=== PATIENT | female | born 1935 | race Caucasian/White ===

== ENCOUNTER 2016-09-13 01:25 | Emergency (ER) | payer MEDICARE, OTHER ==
[2016-09-13 01:38] VITALS: TEMP 97.9; BMI 24.5
[2016-09-13] MEDS ORDERED: NS 1,000 ML IV ONE (01:41)
[2016-09-13] MEDS ORDERED: ONDANSETRON HCL 4 MG/2 ML VIAL IV ONE (01:41)
--- NOTE | 2016-09-13 01:59 | EDPRACDOC ---
- General Information Chief Complaint: Nausea,Vomiting,Diarrhea Stated Complaint: N/V Time Seen by Provider: 09/13/16 01:41 Information Source: Patient, Family Mode Of Arrival: Car Home Medications: Home Medications Amlodipine [Norvasc] 5 mg PO QAM 06/21/13 CloNIDine (Antihypertensive) [Catapres] 0.2 mg PO HS 06/21/13 Metoprolol Succinate 200 mg PO QAM 06/21/13 Paroxetine HCl 40 mg PO HS 06/21/13 Tiotropium [Spiriva Handihaler] 18 mcg INH DAILY PRN 06/21/13 Furosemide [Lasix] 20 mg PO Q48H 04/25/15 Cyanocobalamin/FA/Pyridoxine [Folplex 2.2 Tablet (2.2 mg/1 mg/25 mg)] 1 each PO HS 03/01/16 Levothyroxine [Synthroid, Levoxyl] 88 mcg PO QAM 03/01/16 Rosuvastatin Calcium [Crestor] 5 mg PO MOWEFR 03/01/16 Allopurinol 300 mg PO QAM 05/28/16 Dipyridamole/Aspirin 200/25 [Aggrenox (200mg/25mg)] 1 cap PO .BIDWM ON HOLD Aspirin (Enteric Coated) [Halfprin] 81 mg PO DAILYWM #30 tablet 06/03/16 ClonazePAM [Klonopin] 0.5 mg PO BID #60 tablet 06/03/16 Hydrocodone Bit/Acetaminophen [Jackson 5-325 Tablet] 1 each PO Q6 PRN #30 tablet 06/03/16 Azithromycin [Zithromax] 250 mg PO DAILY #4 tab 09/13/16 Probiotic Blend [Meagan Q] 1 each PO DAILY #30 tab 09/13/16 Promethazine HCl [Phenergan] 25 mg AK Q8H PRN #12 supp 09/13/16 Promethazine [Phenergan] 25 mg PO Q6H PRN #10 tab 09/13/16 Allergies/Adverse Reactions: Allergies Allergy/AdvReac Type Severity Reaction Status Date / Time No Known Allergies Allergy Verified 09/13/16 01:38 - History of Present Illness Onset: yesterday HPI: PT HAS HAD N/V FOR 2 DAYS. PT WAS STARTED ON CIPRO ON 09/08 FOR A UTI, BUT CX WAS NEG. PT'S CLONIDINE WAS ALSO STOPPED ON 09/08 DUE TO SEVERE ORTHOSTATIC HYPOTENSION. PT'S FAMILY MEMBER SAID SHE GAVE PT 2 OF HER ZOFRANS AND IT HAS NOT HELPED. PT DENIES ANY PAIN. Symptoms Occured: Reports: Spontaneous Duration: Reports: Intermittent Recent: Reports: None Pain Severity: None ED Past Medical History - Patient Medical History Neurological History: Reports: Cerebrovascular Accident (April 2015 affecting the left cerebral hemisphere noted on MRI) Cardiac History: Reports: Hypertension, Hypercholesterolemia, Valvular Heart Disease Respiratory History: Reports: COPD, Emphysema GI/ History: Reports: Renal Disease (ELEVATED CREATININE), Gastroesophageal Reflux Musculoskeletal History: Reports: Arthritis, Gout Psychological History: Reports: Anxiety. Denies: Depression, Substance Use Disorder Systemic History: Reports: Cancer (breast), Hypothyroidism Surgical History: Reports: Cholecystectomy, Hysterectomy, Tonsillectomy/ Adnoidectomy, Other (Rectocele and cystocele repair in 2012, mastectomy) - Family Medical History Reports: Hypertension (POSSIBLY FATHER), Cancer (BROTHER), Stroke (MOTHER TIA'S) , Cardiac Disorders - Social Medical History Smoking Status: Former smoker Social History: Denies: Substance Use Disorder ETOH: None Substance Abuse: None Lives With: Family Lives In: Home EDM Review of Systems - Review of Systems ROS Negative Except as Marked: Yes All systems reviewed and were negative except as marked Gastrointestinal: Nausea, Vomiting - Physical Exam Constitutional: Alert (Awake), No apparent distress Oriented to: Time, Person, Place Last recorded Vital Signs: Last Vital Signs Temp 97.9 F 09/13/16 01:35 Pulse 88 09/13/16 01:35 Resp 16 09/13/16 01:35 BP 179/85 09/13/16 01:35 Pulse Ox 93 09/13/16 01:35 Oxygen Pulse Oxygen Saturation 93 O2 Device Room Air Oxygen Flow Rate Fraction of Inspired Oxygen ( FIO2) - HEENT Head: Normal ( normocephalic) Eye Exam: Normal (PERRL, EOMI, Sclera white) Oropharynx: Membranes Dry ENT EAC: Normal TMJ: Normal Nose: No Symptoms Reported (septum midline) Neck: Normal (FROM, trachea at midline) - Respiratory/Cardiovascular Respiratory: Normal - CTA (BBS clear to auscultation without adventitious sounds ) Cardiovascular: Normal (RRR without murmur, gallop or rub) - GI Auscultation: Normal (NABS) Palpation: Normal (Soft,No rebound or guarding, non distended) Tenderness: Non tender Mendoza's Sign: Negative - Musculoskeletal Back: Normal Extremities: Pedal Edema - Integumentary Skin: Normal, Warm, Dry Lymphatics: Normal (no adenopathy) - Neurologic Memory Impaired: Normal Motor Function: Normal (Normal tone, Pulses 2+ No cyanosis or edema, FROM) Cranial Nerve: Normal (CN II-X11 intact sensation, strength 5/5) Cerebellar: Normal Mood Description: Normal Thought: Coherent Perception: Normal - Re-evaluation Re-evaluation 1 Re-evaluation Time: 04:46 (TOLERATING POS) - Results 09/13/16 01:45 09/13/16 01:45 - EKG EKG #1 EKG Time: 02:15 -: Yes EKG interpreted by me Rate: bpm: [address] [place]: Normal Rhythm: NSR Block: None Hypertrophy: None ST: Normal Comparison: 05/29/16 - Diagnostic Imaging Chest Image interpreted by: Radiologist Vascular congestion and mild cardiomegaly, with mildly increased interstitial markings, raising question for minimal interstitial edema. Peribronchial thickening seen. Abdomen Image interpreted by: Radiologist 5 x 6.1 cm diameter abdominal aortic aneurysm. No retroperitoneal hematoma. Focal infiltration in the right lung base suggesting pneumonia. Bilateral renal parenchymal atrophy. No evidence of bowel obstruction or inflammation. Diverticulosis of the sigmoid colon without evidence of diverticulitis. Decision Time to Discharge: 04:46 - Departure Yes I personally saw and evaluated the patient. Disposition: Home Condition: Fair Final Diagnosis: Nausea and vomiting, Dehydration, RLL pneumonia Instructions: Acute Nausea and Vomiting (ED), Bacterial Pneumonia (ED) Education/Counseling Given To: Patient Education/Counseling Given Regarding: Diagnosis, Treatment, Follow Up Referrals: Federica Oliver, [employer] [Primary Care Provider] - One Week Prescriptions: New Promethazine [Phenergan] 25 mg PO Q6H PRN #10 tab PRN Reason: Nausea/Vomiting Promethazine HCl [Phenergan] 25 mg AK Q8H PRN #12 supp PRN Reason: Nausea/Vomiting Azithromycin [Zithromax] 250 mg PO DAILY #4 tab Probiotic Blend [Meagan Q] 1 each PO DAILY #30 tab No Action Tiotropium [Spiriva Handihaler] 18 mcg INH DAILY PRN PRN Reason: Shortness Of Breath Paroxetine HCl 40 mg PO HS Amlodipine [Norvasc] 5 mg PO QAM Metoprolol Succinate 200 mg PO QAM CloNIDine (Antihypertensive) [Catapres] 0.2 mg PO HS Furosemide [Lasix] 20 mg PO Q48H Cyanocobalamin/FA/Pyridoxine [Folplex 2.2 Tablet (2.2 mg/1 mg/25 mg)] 1 each PO HS Levothyroxine [Synthroid, Levoxyl] 88 mcg PO QAM Rosuvastatin Calcium [Crestor] 5 mg PO MOWEFR Allopurinol 300 mg PO QAM Dipyridamole/Aspirin 200/25 [Aggrenox (200mg/25mg)] 1 cap PO .BIDWM ON HOLD Aspirin (Enteric Coated) [Halfprin] 81 mg PO DAILYWM #30 tablet ClonazePAM [Klonopin] 0.5 mg PO BID #60 tablet Hydrocodone Bit/Acetaminophen [Jackson 5-325 Tablet] 1 each PO Q6 PRN #30 tablet PRN Reason: Pain Additional Instructions: STOP CIPRO
[2016-09-13 02:05] LABS: AUTOMATED BASOPHIL 1.1 % (0-2); AUTOMATED EOSINOPHIL 0.4 % (0-5); AUTOMATED LYMPH 11.8 % (17-44); AUTOMATED MONOCYTE 4.3 % (3-10); AUTOMATED NEUTROPHIL 82.4 % (45-76); MPV 7.5 fL (7.4-10.4)
[2016-09-13 02:15] LABS: BLOOD UREA NITROGEN 35 MG/DL (7-17); CALCIUM 10.4 MG/DL (8.4-10.2); CALCULATED OSMOLALITY 288 MOs/Kg (270-290); CHLORIDE 104 mEq/L (98-107); GLUCOSE 160 MG/DL (70-99); SODIUM LEVEL 144 mEq/L (137-146); TOTAL PROTEIN 7.5 G/DL (6.3-8.2)
[2016-09-13 02:38] LABS: PARTIAL THROMB. TIME 24.3 SEC (22-35); PT-INR 1.1
--- NOTE | 2016-09-13 02:48 | DIRPT ---
CLINICAL DATA: Acute onset of nausea and vomiting. Initial encounter. EXAM: PORTABLE CHEST 1 VIEW COMPARISON: Chest radiograph performed 05/31/2016 FINDINGS: The lungs are well-aerated. Vascular congestion is noted, with mildly increased interstitial markings, raising question for minimal interstitial edema. Peribronchial thickening is seen. There is no evidence of pleural effusion or pneumothorax. The cardiomediastinal silhouette is mildly enlarged. No acute osseous abnormalities are seen. IMPRESSION: Vascular congestion and mild cardiomegaly, with mildly increased interstitial markings, raising question for minimal interstitial edema. Peribronchial thickening seen. Electronically Signed By: Royer Adames M.D. On: 09/13/2016 02:46
[2016-09-13 03:05] LABS: LEUKOCYTES/URINE NEG (NEGATIVE); NITRITE/URINE NEG (NEGATIVE); URINE OCCULT BLOOD 1+ (NEG/TRACE); WBC/URINE 0-2 (0-5)
--- NOTE | 2016-09-13 03:47 | DIRPT ---
CLINICAL DATA: Nausea and vomiting for 2 days. White cell count 14. Hematuria. EXAM: CT ABDOMEN AND PELVIS WITHOUT CONTRAST TECHNIQUE: Multidetector CT imaging of the abdomen and pelvis was performed following the standard protocol without IV contrast. COMPARISON: Ultrasound abdomen 07/06/2016 FINDINGS: Focal infiltration in the right lung base suggesting pneumonia. Mild atelectasis in the left lung base. Coronary artery calcifications. Evaluation of solid organs and vascular structures is limited without IV contrast material. Evaluation of bowel structures is limited without oral contrast material. The unenhanced appearance of the liver, spleen, pancreas, inferior vena cava, and retroperitoneal lymph nodes is unremarkable. Gallbladder is not visualized and may be contracted or surgically absent. Both kidneys demonstrate renal parenchymal atrophy with sub cm lesions likely representing cysts. No hydronephrosis or hydroureter. No renal stones. There is a large infrarenal abdominal aortic aneurysm measuring 5 cm AP dimension and 6.1 cm transverse dimension. Aneurysm extends to just above the bifurcation. Calcification throughout the abdominal aorta and iliac arteries. No retroperitoneal fluid to suggest rupture. Stomach, small bowel, and colon are not abnormally distended. Stool fills the colon. There are scattered colonic diverticula. No free air or free fluid in the abdomen. Abdominal wall musculature appears intact. Pelvis: Appendix is not identified. Bladder wall is not thickened. Diverticulosis of sigmoid colon without evidence of diverticulitis. No free or loculated pelvic fluid collections. No pelvic mass or lymphadenopathy. Surgical absence of the uterus. Degenerative changes in the spine. No destructive bone lesions. IMPRESSION: 5 x 6.1 cm diameter abdominal aortic aneurysm. No retroperitoneal hematoma. Focal infiltration in the right lung base suggesting pneumonia. Bilateral renal parenchymal atrophy. No evidence of bowel obstruction or inflammation. Diverticulosis of the sigmoid colon without evidence of diverticulitis. Electronically Signed By: Doyle Law M.D. On: 09/13/2016 03:45
[2016-09-13] MEDS ORDERED: CEFTRIAXONE 1 GM in D5W 100 ML IV ONE (03:56)
[2016-09-13] MEDS ORDERED: AZITHROMYCIN 250 MG TAB PO ONE (03:56)
[2016-09-13 05:42] VITALS: BP 138/68; PULSE 85
== END 2016-09-13 05:30 | disposition home or self-care (01) ==
LOC: ED 01:25
DX: E86.0 Dehydration (principal); J18.9 Pneumonia, unspecified organism; R11.2 Nausea with vomiting, unspecified; R31.9 Hematuria, unspecified
CPT/HCPCS: 36415; 71010; 74176; 80053; 81001; 83605; 83690; 84484; 85025; 85610; 85730; 87040; 87086; 93005; 96361; 96365; 96375; 99283; A9270; J0696; J2405; J7060; J3490

== ENCOUNTER 2016-09-16 10:29 | Inpatient (IN) | payer MEDICARE ==
[2016-09-16] MEDS ORDERED: NS 1,000 ML IV ONE ×2 (10:44→11:43)
--- NOTE | 2016-09-16 10:44 | EDPRACDOC ---
- History of Present Illness HPI: MD NOTE SEE ED RECORD FROM 09/13; PT RESIDES AT HOME. REPORTEDLY FULL CODE; DX WITH VOMITING AND RLL PNEUMONIA; PT HAS NOT BEEN EATING OR DRINKING; MORE CONFUSION COMPARED TO BASELINE. LAB TRENDS REVIEWED; WBC INCREASED; BUN/CR INCREASED; <Nathen Burt - Last Filed: 09/16/16 12:02> - General Information Information Source: [employer] - History of Present Illness Onset: 4 days Exact Onset of Symptoms: Unknown HPI: EMS REPORTS FAMILY STATES INCREASING GENERALIZED WEAKNESS, LETHARGY, NOT EATING , SEEN ON 09/13/16 FOR N/V, DIAGNOSED WITH PNEUMONIA, GIVEN ZITHROMAX AND PHENERGAN, PT WORSE. PT DENIES COMPLAINTS OF PAIN OR SOBR, STATES SHE JUST DOES NOT FEEL GOOD. Symptoms began: Gradually Duration: Since Onset Symptoms Currently: Reports: Worsened Altered Quality: Reports: Decreased Alertness, Confusion Altered Severity: Reports: Moderate, Unable to care for self Recent Symptoms of: Reports: Fever, Vomiting. Denies: Cough, Medications/drug use, Nausea, Rash, Trauma, Urinary symptoms Relevant History: Reports: CVA Associated signs and symptoms: Reports: Weakness. Denies: Chest pain, Headache , Seizure, Slurred speech <Dayton Cuellar - Last Filed: 09/16/16 12:32> - General Information Chief Complaint: Altered Mental Status Stated Complaint: CONFUSION Time Seen by Provider: 09/16/16 10:38 Home Medications: Home Medications Amlodipine [Norvasc] 5 mg PO QAM 06/21/13 CloNIDine (Antihypertensive) [Catapres] 0.2 mg PO HS 06/21/13 Metoprolol Succinate 200 mg PO QAM 06/21/13 Paroxetine HCl 40 mg PO HS 06/21/13 Tiotropium [Spiriva Handihaler] 18 mcg INH DAILY PRN 06/21/13 Cyanocobalamin/FA/Pyridoxine [Folplex 2.2 Tablet (2.2 mg/1 mg/25 mg)] 1 tab PO HS 03/01/16 Levothyroxine [Synthroid, Levoxyl] 88 mcg PO QAM 03/01/16 Rosuvastatin Calcium [Crestor] 5 mg PO MOWEFR 03/01/16 Allopurinol 300 mg PO QAM 05/28/16 Dipyridamole/Aspirin 200/25 [Aggrenox (200mg/25mg)] 1 cap PO BID 05/29/16 ClonazePAM [Klonopin] 0.5 mg PO BID #60 tablet 06/03/16 Azithromycin [Zithromax] 250 mg PO DAILY #4 tab 09/13/16 Promethazine [Phenergan] 25 mg PO Q6H PRN #10 tab 09/13/16 Albuterol Sulfate [Proair Hfa] 2 puff INH Q4-6H PRN 09/16/16 Calcitriol [Rocaltrol] 0.25 mcg PO DAILY 09/16/16 Ciprofloxacin HCl [Cipro] 250 mg PO DAILY 09/16/16 Hydrocodone Bit/Acetaminophen [[place] 5-325 Tablet] 1 tab PO Q6 PRN 09/16/16 Metoprolol Succinate (XL) [Toprol Xl] 100 mg PO BID 09/16/16 Allergies/Adverse Reactions: Allergies Allergy/AdvReac Type Severity Reaction Status Date / Time No Known Allergies Allergy Verified 09/13/16 01:38 - Treatment Prior to ED Arrival Reported Medications/Treatment POWER PROJECT MANAGER Meds/Treatments Given O2 via Cannula EMS Treatment ALS IV Yes Comment 20g to LAC <Nathen Burt - Last Filed: 09/16/16 12:02> - Treatment Prior to ED Arrival Reported Medications/Treatment POWER PROJECT MANAGER Meds/Treatments Given O2 via Cannula EMS Treatment ALS IV Yes Comment 20g to LAC <Dayton Cuellar - Last Filed: 09/16/16 12:32> ED Past Medical History - History Reviewed Yes Nurses notes reviewed and agree except as marked - Patient Medical History Neurological History: Reports: Cerebrovascular Accident (April 2015 affecting the left cerebral hemisphere noted on MRI) Cardiac History: Reports: Hypertension, Hypercholesterolemia, Valvular Heart Disease Respiratory History: Reports: COPD, Emphysema GI/ History: Reports: Renal Disease (ELEVATED CREATININE), Gastroesophageal Reflux Musculoskeletal History: Reports: Arthritis, Gout Psychological History: Reports: Anxiety. Denies: Depression, Substance Use Disorder Systemic History: Reports: Cancer (breast), Hypothyroidism Surgical History: Reports: Cholecystectomy, Hysterectomy, Tonsillectomy/ Adnoidectomy, Other (Rectocele and cystocele repair in 2012, mastectomy) - Family Medical History Reports: Hypertension (POSSIBLY FATHER), Cancer (BROTHER), Stroke (MOTHER TIA'S) , Cardiac Disorders - Social Medical History Smoking Status: Former smoker Social History: Denies: Substance Use Disorder ETOH: None Substance Abuse: None <Dayton Cuellar - Last Filed: 09/16/16 12:32> EDM Review of Systems - Review of Systems Constitutional: Fatigue, Weakness. negative: Chills, Fever Eyes: negative: Blurred Vision, Double Vision Ears: negative: Drainage Throat: negative: Pain Nose: negative: Congestion, Discharge Respiratory: Cough. negative: Shortness of Breath, Wheezing Cardiovascular: negative: Chest Pain, Palpitations Gastrointestinal: Nausea, Vomiting. negative: Diarrhea, Pain Genitourinary: negative: Dysuria, Frequency Neurological: Weakness. negative: Dizziness, Headache, Numbness Musculoskeletal: No Symptoms Reported Integumentary: No Symptoms Reported <Dayton Cuellar - Last Filed: 09/16/16 12:32> - Physical Exam Last recorded Vital Signs: Last Vital Signs Temp 99.8 F 09/16/16 10:50 Pulse 87 09/16/16 11:39 Resp 20 09/16/16 11:39 BP 162/72 09/16/16 11:39 Pulse Ox 96 09/16/16 11:39 Oxygen Pulse Oxygen Saturation 96 O2 Device Nasal Cannula Oxygen Flow Rate 2 Fraction of Inspired Oxygen ( FIO2) <Nathen Burt - Last Filed: 09/16/16 12:02> - Physical Exam Constitutional: Alert (Awake), No apparent distress Oriented to: Time, Person, Place Last recorded Vital Signs: Last Vital Signs Temp 97.8 F 09/16/16 10:31 Pulse 90 09/16/16 10:31 Resp 20 09/16/16 10:31 BP 153/83 09/16/16 10:31 Pulse Ox 84 L 09/16/16 10:31 Oxygen Pulse Oxygen Saturation 84 O2 Device Nasal Cannula Oxygen Flow Rate 2 Fraction of Inspired Oxygen ( FIO2) - HEENT Head: Normal ( normocephalic) Eye Exam: Normal (PERRL, EOMI, Sclera white) Oropharynx: Normal (Pharynx:Moist without exudate,Gums-no swelling) Tympanic Membrane: Normal ENT EAC: Normal TMJ: Normal Nose: No Symptoms Reported (septum midline) Neck: Normal (FROM, trachea at midline) - Respiratory/Cardiovascular Respiratory: Normal - CTA (BBS clear to auscultation without adventitious sounds ) Cardiovascular: Normal (RRR without murmur, gallop or rub) - GI Auscultation: Normal (NABS) Palpation: Normal (Soft,No rebound or guarding, non distended) Tenderness: Non tender Mendoza's Sign: Negative - Musculoskeletal Back: Normal (Non-Tender) Extremities: Normal (Normal tone, Pulses 2+ No cyanosis or edema, FROM) - Integumentary Skin: Normal, Warm, Dry Lymphatics: Normal (no adenopathy) - Neurologic Memory Impaired: Normal Motor Function: Normal (Normal tone, Pulses 2+ No cyanosis or edema, FROM) Cranial Nerve: Normal (CN II-X11 intact sensation, strength 5/5) Cerebellar: Normal Mood Description: Normal Perception: Normal <Dayton Cuellar - Last Filed: 09/16/16 12:32> - Results 09/16/16 10:40 09/16/16 10:40 WBC 17.1 xk/uL (3.8-10.8) H 09/16/16 10:40 RBC 3.77 xM/uL (4.20-5.40) L 09/16/16 10:40 Hgb 12.0 g/dL (12.0-16.0) 09/16/16 10:40 Hct 37.9 % (36-47) 09/16/16 10:40 MCV 101 fL (81-99) H 09/16/16 10:40 MCH 32.0 pg (27-32) 09/16/16 10:40 MCHC 31.7 g/dl (33-36) L 09/16/16 10:40 RDW 16.7 % (11.5-14.5) H 09/16/16 10:40 Plt Count 248 xk/uL (130-400) 09/16/16 10:40 MPV 7.7 fL (7.4-10.4) 09/16/16 10:40 Neut % (Auto) 78.0 % (45-76) H 09/16/16 10:40 Lymph % (Auto) 11.9 % (17-44) L 09/16/16 10:40 [place] % (Auto) 8.6 % (3-10) 09/16/16 10:40 Eos % (Auto) 0.5 % (0-5) 09/16/16 10:40 Baso % (Auto) 1.0 % (0-2) 09/16/16 10:40 Absolute Neuts (auto) 13.34 xk/uL (1.7-8.2) H 09/16/16 10:40 Absolute Lymphs (auto) 1.88 xk/uL (0.65-4.75) 09/16/16 10:40 PT 11.3 SEC (9.2-11.2) H 09/16/16 10:40 INR 1.1 09/16/16 10:40 APTT 20.1 SEC (22-35) L 09/16/16 10:40 Puncture Site Right radial 09/16/16 10:57 pH 7.450 pH UNITS (7.35-7.45) 09/16/16 10:57 pCO2 37.0 mmHg (35-45) 09/16/16 10:57 pO2 68.0 mmHg (80-100) L 09/16/16 10:57 HCO3 25.7 MMOL/L (22-26) 09/16/16 10:57 Total CO2 26.8 MMOL/L (23-27) 09/16/16 10:57 Base Excess 1.8 (+/- 2) 09/16/16 10:57 FiO2 % 2 lpm nc 09/16/16 10:57 Specimen Drawn By Piksa 09/16/16 10:57 Sodium 142 mEq/L (137-146) 09/16/16 10:40 Potassium 4.2 mEq/L (3.5-5.1) 09/16/16 10:40 Chloride 106 mEq/L (98-107) 09/16/16 10:40 Carbon Dioxide 25 mMOL/L (22-33) 09/16/16 10:40 Anion Gap 15 mEq/L (8-16) 09/16/16 10:40 BUN 46 MG/DL (7-17) H 09/16/16 10:40 Creatinine 3.20 MG/DL (0.52-1.04) H 09/16/16 10:40 Estimated GFR (MDRD) 14 mL/min (>=60) L 09/16/16 10:40 Glucose 117 mg/dL (70-99) H 09/16/16 10:40 Calculated Osmolality 286 MOs/Kg (270-290) 09/16/16 10:40 Lactic Acid 2.5 mEq/L (0.7-2.1) H 09/16/16 11:00 Calcium 9.1 MG/DL (8.4-10.2) 09/16/16 10:40 Corrected Calcium 9.5 MG/DL (8.4-10.2) 09/16/16 10:40 Total Bilirubin 0.7 MG/DL (0.2-1.3) 09/16/16 10:40 AST 19 IU/L (14-36) 09/16/16 10:40 ALT 16 IU/L (9-52) 09/16/16 10:40 Alkaline Phosphatase 75 IU/L (55-165) 09/16/16 10:40 Troponin I 0.04 ng/mL (<.04) 09/16/16 10:40 Ott-G-Bkisrogvhuo Pept 7880 pg/mL (0-1800) H 09/16/16 10:40 Total Protein 6.7 G/DL (6.3-8.2) 09/16/16 10:40 Albumin 3.6 G/DL (3.5-5.0) 09/16/16 10:40 Lipase 79 U/L (23-300) 09/16/16 10:40 Urine Color Yellow 09/16/16 10:51 Urine Clarity Cldy 09/16/16 10:51 Urine pH 5.0 (5.0-8.0) 09/16/16 10:51 Ur Specific [place] 1.010 (1.003-1.035) 09/16/16 10:51 Urine Protein 3+ (NEG/TRACE) H 09/16/16 10:51 Urine Glucose (UA) Neg (NEGATIVE) 09/16/16 10:51 Urine Ketones Neg (NEGATIVE) 09/16/16 10:51 Urine Occult Blood 1+ (NEG/TRACE) H 09/16/16 10:51 Urine Nitrite Neg (NEGATIVE) 09/16/16 10:51 Urine Bilirubin Neg (NEGATIVE) 09/16/16 10:51 Urine Urobilinogen <2.0 MG/DL (0-1) 09/16/16 10:51 Ur Leukocyte Esterase Neg (NEGATIVE) 09/16/16 10:51 Urine RBC 2-5 (0-5) 09/16/16 10:51 Urine WBC 0-2 (0-5) 09/16/16 10:51 Ur Epithelial Cells 2+ 09/16/16 10:51 Urine Bacteria Few (NEG/FEW) 09/16/16 10:51 Urine Mucus Occ (NEG/OCC) 09/16/16 10:51 Lab Results 09/16/16 09/16/16 09/16/16 11:00 10:57 10:51 WBC RBC Hgb Hct MCV MCH MCHC RDW Plt Count MPV Neut % (Auto) Lymph % (Auto) [place] % (Auto) Eos % (Auto) Baso % (Auto) Absolute Neuts (auto) Absolute Lymphs (auto) PT INR APTT Puncture Site Right radial pH 7.450 pCO2 37.0 pO2 68.0 L HCO3 25.7 Total CO2 26.8 Base Excess 1.8 FiO2 % 2 lpm nc Specimen Drawn By Piksa Sodium Potassium Chloride Carbon Dioxide Anion Gap BUN Creatinine Estimated GFR (MDRD) Glucose Calculated Osmolality Lactic Acid 2.5 H Calcium Corrected Calcium Total Bilirubin AST ALT Alkaline Phosphatase Troponin I Wwe-N-Iacriwwjvts Pept Total Protein Albumin Lipase Urine Color Yellow Urine Clarity Cldy Urine pH 5.0 Ur Specific [place] 1.010 Urine Protein 3+ H Urine Glucose (UA) Neg Urine Ketones Neg Urine Occult Blood 1+ H Urine Nitrite Neg Urine Bilirubin Neg Urine Urobilinogen <2.0 Ur Leukocyte Esterase Neg Urine RBC 2-5 Urine WBC 0-2 Ur Epithelial Cells 2+ Urine Bacteria Few Urine Mucus Occ 09/16/16 09/16/16 09/16/16 10:40 10:40 10:40 WBC 17.1 H RBC 3.77 L Hgb 12.0 Hct 37.9 MCV 101 H MCH 32.0 MCHC 31.7 L RDW 16.7 H Plt Count 248 MPV 7.7 Neut % (Auto) 78.0 H Lymph % (Auto) 11.9 L [place] % (Auto) 8.6 Eos % (Auto) 0.5 Baso % (Auto) 1.0 Absolute Neuts (auto) 13.34 H Absolute Lymphs (auto) 1.88 PT 11.3 H INR 1.1 APTT 20.1 L Puncture Site pH pCO2 pO2 HCO3 Total CO2 Base Excess FiO2 % Specimen Drawn By Sodium 142 Potassium 4.2 Chloride 106 Carbon Dioxide 25 Anion Gap 15 BUN 46 H Creatinine 3.20 H Estimated GFR (MDRD) 14 L Glucose 117 H Calculated Osmolality 286 Lactic Acid Calcium 9.1 Corrected Calcium 9.5 Total Bilirubin 0.7 AST 19 ALT 16 Alkaline Phosphatase 75 Troponin I 0.04 Enn-F-Zwrrrvlhkjc Pept 7880 H Total Protein 6.7 Albumin 3.6 Lipase 79 Urine Color Urine Clarity Urine pH Ur Specific [place] Urine Protein Urine Glucose (UA) Urine Ketones Urine Occult Blood Urine Nitrite Urine Bilirubin Urine Urobilinogen Ur Leukocyte Esterase Urine RBC Urine WBC Ur Epithelial Cells Urine Bacteria Urine Mucus <Nathen Burt - Last Filed: 09/16/16 12:02> - Differential Diagnosis Dehydration, Hypoxemia, Sepsis, UTI - Results 09/16/16 10:40 09/16/16 10:40 09/16/16 11:43 Laboratory Results - last 24 hr 09/16/16 09/16/16 09/16/16 10:40 10:40 10:40 WBC 17.1 H RBC 3.77 L Hgb 12.0 Hct 37.9 MCV 101 H MCH 32.0 MCHC 31.7 L RDW 16.7 H Plt Count 248 MPV 7.7 Neut % (Auto) 78.0 H Lymph % (Auto) 11.9 L [place] % (Auto) 8.6 Eos % (Auto) 0.5 Baso % (Auto) 1.0 Absolute Neuts (auto) 13.34 H Absolute Lymphs (auto) 1.88 PT 11.3 H INR 1.1 APTT 20.1 L Puncture Site pH pCO2 pO2 HCO3 Total CO2 Base Excess FiO2 % Specimen Drawn By Sodium 142 Potassium 4.2 Chloride 106 Carbon Dioxide 25 Anion Gap 15 BUN 46 H Creatinine 3.20 H Estimated GFR (MDRD) 14 L Glucose 117 H Calculated Osmolality 286 Lactic Acid Calcium 9.1 Corrected Calcium 9.5 Total Bilirubin 0.7 AST 19 ALT 16 Alkaline Phosphatase 75 Troponin I 0.04 Gvc-X-Twuvbhhoinb Pept 7880 H Total Protein 6.7 Albumin 3.6 Lipase 79 Urine Color Urine Clarity Urine pH Ur Specific [place] Urine Protein Urine Glucose (UA) Urine Ketones Urine Occult Blood Urine Nitrite Urine Bilirubin Urine Urobilinogen Ur Leukocyte Esterase Urine RBC Urine WBC Ur Epithelial Cells Urine Bacteria Urine Mucus 09/16/16 09/16/16 09/16/16 10:51 10:57 11:00 WBC RBC Hgb Hct MCV MCH MCHC RDW Plt Count MPV Neut % (Auto) Lymph % (Auto) [place] % (Auto) Eos % (Auto) Baso % (Auto) Absolute Neuts (auto) Absolute Lymphs (auto) PT INR APTT Puncture Site Right radial pH 7.450 pCO2 37.0 pO2 68.0 L HCO3 25.7 Total CO2 26.8 Base Excess 1.8 FiO2 % 2 lpm nc Specimen Drawn By [place] Sodium Potassium Chloride Carbon Dioxide Anion Gap BUN Creatinine Estimated GFR (MDRD) Glucose Calculated Osmolality Lactic Acid 2.5 H Calcium Corrected Calcium Total Bilirubin AST ALT Alkaline Phosphatase Troponin I Aku-W-Wdvbpebinmm Pept Total Protein Albumin Lipase Urine Color Yellow Urine Clarity Cldy Urine pH 5.0 Ur Specific [place] 1.010 Urine Protein 3+ H Urine Glucose (UA) Neg Urine Ketones Neg Urine Occult Blood 1+ H Urine Nitrite Neg Urine Bilirubin Neg Urine Urobilinogen <2.0 Ur Leukocyte Esterase Neg Urine RBC 2-5 Urine WBC 0-2 Ur Epithelial Cells 2+ Urine Bacteria Few Urine Mucus Occ - EKG EKG #1 EKG Time: 10:41 -: Yes EKG interpreted by me Rate: bpm: 84 [place]: Normal Rhythm: NSR Block: None Hypertrophy: None ST: Nonsp Comparison: 09/13/16 (NO CHANGE) - Diagnostic Imaging CXR Image interpreted by: Radiologist PORTABLE CHEST 1 VIEW COMPARISON: 09/13/2016 and 05/31/2016. FINDINGS: 1104 hours. Interval improved aeration of the lungs. The heart size and mediastinal contours are stable. There is mild chronic vascular congestion without pulmonary edema, confluent airspace opacity or significant pleural effusion. The bones appear unchanged. IMPRESSION: No active cardiopulmonary process. - Additional Information Additional Information: PREVIOUS VISIT FROM 09/13/16 REVIEWED, PT HAD CT ABD/PELVIS AT THAT TIME WHICH SHOWED PNEUMONIA. LACTIC ACID WAS NL ON 09/13, BUN/CR ELEVATED TODAY. PT WAS DISCHARGE ON ZITHROMAX AND PHENERGAN. <Dayton Cuellar - Last Filed: 09/16/16 12:32> ED Critical Care Note - Critical Care Note Total Time (mins): 37 <Nathen Burt - Last Filed: 09/16/16 12:02> - Departure Yes I personally saw and evaluated the patient. Disposition: Admit IP To This Hospital Decision to Admit Time: 12:00 (IKRAM) Decision to admit date: 09/16/16 Decision to admit: from ED <Nathen Burt - Last Filed: 02/01/17 12:02> - Departure Education/Counseling Given To: Patient, Family Member Education/Counseling Given Regarding: Diagnosis, Treatment, Prognosis, Follow Up <Dayton Cuellar - Last Filed: 09/16/16 12:32> - Departure Condition: Fair Final Diagnosis: Community acquired pneumonia, Severe sepsis, Failure of outpatient treatment, PRE RENAL AZOTEMIA Referrals: Federica Oliver, GLOBAL PROGRAM MANAGER [Primary Care Provider] - One Week Prescriptions: No Action Tiotropium [Spiriva Handihaler] 18 mcg INH DAILY PRN PRN Reason: Shortness Of Breath Paroxetine HCl 40 mg PO HS Amlodipine [Norvasc] 5 mg PO QAM Metoprolol Succinate 200 mg PO QAM CloNIDine (Antihypertensive) [Catapres] 0.2 mg PO HS Cyanocobalamin/FA/Pyridoxine [Folplex 2.2 Tablet (2.2 mg/1 mg/25 mg)] 1 tab PO HS Levothyroxine [Synthroid, Levoxyl] 88 mcg PO QAM Rosuvastatin Calcium [Crestor] 5 mg PO MOWEFR Allopurinol 300 mg PO QAM Dipyridamole/Aspirin 200/25 [Aggrenox (200mg/25mg)] 1 cap PO BID ClonazePAM [Klonopin] 0.5 mg PO BID #60 tablet Promethazine [Phenergan] 25 mg PO Q6H PRN #10 tab PRN Reason: Nausea/Vomiting Azithromycin [Zithromax] 250 mg PO DAILY #4 tab Metoprolol Succinate (XL) [Toprol Xl] 100 mg PO BID Ciprofloxacin HCl [Cipro] 250 mg PO DAILY Albuterol Sulfate [Proair Hfa] 2 puff INH Q4-6H PRN PRN Reason: Shortness Of Breath Hydrocodone Bit/Acetaminophen [[place] 5-325 Tablet] 1 tab PO Q6 PRN PRN Reason: Pain Calcitriol [Rocaltrol] 0.25 mcg PO DAILY
[2016-09-16 11:00] LABS: ALLEN'S TEST PASS; BEb 1.8 (+/- 2); TCO2 26.8 MMOL/L (23-27)
[2016-09-16 11:01] LABS: ABG Draw Site Right Radial
[2016-09-16 11:02] LABS: AUTOMATED EOSINOPHIL 0.5 % (0-5); AUTOMATED LYMPH 11.9 % (17-44); AUTOMATED MONOCYTE 8.6 % (3-10); MPV 7.7 fL (7.4-10.4)
[2016-09-16 11:09] LABS: LEUKOCYTES/URINE NEG (NEGATIVE); NITRITE/URINE NEG (NEGATIVE); URINE OCCULT BLOOD 1+ (NEG/TRACE); WBC/URINE 0-2 (0-5)
[2016-09-16 11:18] LABS: PARTIAL THROMB. TIME 20.1 SEC (22-35); PT-INR 1.1
[2016-09-16 11:20] LABS: CALC CORRECTED 9.5 MG/DL (8.4-10.2); CALCIUM 9.1 MG/DL (8.4-10.2); CREATININE 3.2 MG/DL (0.52-1.04); TOTAL PROTEIN 6.7 G/DL (6.3-8.2)
--- NOTE | 2016-09-16 11:30 | DIRPT ---
CLINICAL DATA: Sepsis. Increasing generalized weakness and lethargy. EXAM: PORTABLE CHEST 1 VIEW COMPARISON: 09/13/2016 and 05/31/2016. FINDINGS: 1104 hours. Interval improved aeration of the lungs. The heart size and mediastinal contours are stable. There is mild chronic vascular congestion without pulmonary edema, confluent airspace opacity or significant pleural effusion. The bones appear unchanged. IMPRESSION: No active cardiopulmonary process. Electronically Signed By: Doyle Lora M.D. On: 09/16/2016 11:27
[2016-09-16] MEDS ORDERED: Levofloxacin 750 mg/150 ml D5W 750 MG/150 ML RTU IV ONE (11:47)
[2016-09-16] MEDS ORDERED: SODIUM CHLORIDE 0.9% 3 ML FLUSH FLUSH PRN (12:31)
[2016-09-16] MEDS ORDERED: ACETAMINOPHEN 325 MG/TAB TABLET PO PRN (12:31)
[2016-09-16] MEDS ORDERED: ACETAMINOPHEN 650 MG SUPP PR PRN (12:31)
[2016-09-16] MEDS ORDERED: PROMETHAZINE 25 MG/ML VIAL IV PRN (12:31)
[2016-09-16] MEDS ORDERED: DOCUSATE-SENNA CONCENTRATE TAB PO PRN (12:31)
[2016-09-16] MEDS ORDERED: GLUCAGON 1 MG VIAL SQ PRN (12:31)
[2016-09-16] MEDS ORDERED: Albuterol/Ipratropium Neb 3 ML NEB NEB PRN (12:31)
[2016-09-16] MEDS ORDERED: BENZONATATE 100 MG PERLES PO PRN (12:31)
[2016-09-16] MEDS ORDERED: TEMAZEPAM 15 MG CAP PO PRN (12:31)
[2016-09-16] MEDS ORDERED: GLUCOSE (ORAL GEL) 15 GM TUBE PO PRN (12:31)
[2016-09-16] MEDS ORDERED: DEXTROSE 25 GM/50 ML PFS IV PRN (12:31)
[2016-09-16] MEDS ORDERED: SIMETHICONE 80 MG TAB PO PRN (12:31)
--- NOTE | 2016-09-16 13:12 | HISTPHYS ---
- Chief Complaint SHORT OF BREATH - History of Present Illness Porsche Connolly is an 81 year old woman who lives at home with her family. She has had nausea and vomiting for 5 days and was recently seen in the ED for this complaint. She was diagnosed with pneumonia and treated as an outpatient, but has failed to improve. He family feels that she is getting worse. She is not eating, her mental status is more clouded (she is more confused and lethargic). She has not had as much vomiting the past two days as she did initially, but the patient states that she just doesn't feel good. She is not having any fevers or chills. Her white blood cell count is elevated, and she did have an infiltrate on her CTA of the chest three days ago. She is referred for admission at this time. - Medical History Cardiac History: Reports: Coronary Artery Disease, Hypertension, Hypercholesterolemia, Valvular Heart Disease Respiratory History: Reports: COPD, Emphysema GI/ History: Reports: Renal Disease ( CKD-4), Gastroesophageal Reflux, Diverticulosis Musculoskeletal History: Reports: Arthritis, Gout, Osteoarthritis Systemic History: Reports: Cancer (breast), Hypothyroidism Neurological History: Reports: Cerebrovascular Accident (April 2015 affecting the left cerebral hemisphere noted on MRI), Dementia (multi-infacrt) Psychological History: Reports: Anxiety. Denies: Depression, Substance Use Disorder - Surgical History Reports: Cholecystectomy, Hysterectomy, Tonsillectomy/Adnoidectomy, Other ( Rectocele and cystocele repair in 2012, mastectomy R, cataract removal) - Medictions/Allergies Allergies No Known Allergies Allergy (Verified 09/13/16 01:38) Current Medication List: Reviewed Home Medications Amlodipine [Norvasc] 5 mg PO QAM 06/21/13 CloNIDine (Antihypertensive) [Catapres] 0.2 mg PO HS 06/21/13 Metoprolol Succinate 200 mg PO QAM 06/21/13 Paroxetine HCl 40 mg PO HS 06/21/13 Tiotropium [Spiriva Handihaler] 18 mcg INH DAILY PRN 06/21/13 Cyanocobalamin/FA/Pyridoxine [Folplex 2.2 Tablet (2.2 mg/1 mg/25 mg)] 1 tab PO HS 03/01/16 Levothyroxine [Synthroid, Levoxyl] 88 mcg PO QAM 03/01/16 Rosuvastatin Calcium [Crestor] 5 mg PO MOWEFR 03/01/16 Allopurinol 300 mg PO QAM 05/28/16 Dipyridamole/Aspirin 200/25 [Aggrenox (200mg/25mg)] 1 cap PO BID 05/29/16 ClonazePAM [Klonopin] 0.5 mg PO BID #60 tablet 06/03/16 Azithromycin [Zithromax] 250 mg PO DAILY #4 tab 09/13/16 Promethazine [Phenergan] 25 mg PO Q6H PRN #10 tab 09/13/16 Albuterol Sulfate [Proair Hfa] 2 puff INH Q4-6H PRN 09/16/16 Calcitriol [Rocaltrol] 0.25 mcg PO DAILY 09/16/16 Ciprofloxacin HCl [Cipro] 250 mg PO DAILY 09/16/16 Hydrocodone Bit/Acetaminophen [[place] 5-325 Tablet] 1 tab PO Q6 PRN 09/16/16 Metoprolol Succinate (XL) [Toprol Xl] 100 mg PO BID 09/16/16 - Family History Reports: Hypertension (POSSIBLY FATHER), Cancer (BROTHER), Stroke (MOTHER TIA'S) , Cardiac Disorders (Mom and Dad) - Social History Travel Outside of [place] in the Last 3 Months?: No Lives: With Family Smoking Status: Former smoker (has smoked as much as 2 ppd for 60 years- quit in January 2016) Social History: Reports: Alcohol Use. Denies: Substance Use Disorder (quit drinking alcohol 2015) - Review of Systems Constitutional: Fatigue, Loss of Appetite, Weakness. negative: Chills, Fever Eyes: Vision Loss, Cataracts Ears: No Symptoms Reported Nose: No Symptoms Reported. negative: Bleeding, Congestion, Discharge, Deformity Mouth: Dry Mouth, Poor Dentition Throat/Neck: negative: Pain, Swelling, Hoarseness, Snoring, Thyroid enlargement Respiratory: Barky Cough, Shortness of Breath, Wheezing, Dyspnea Cardiovascular: Chest Pain, Orthopnea, Palpitations, PND. negative: Edema Gastrointestinal: Nausea, Vomiting, Heartburn, Appetite Changes. negative: Abdominal Pain, Constipation, Melena, Hematochezia Genitourinary: No Symptoms Reported, Nocturia, Amenorrhea, Postmenopause. negative: Dysuria, Discharge, Frequency, Hematuria Neurological: Gait Difficulty, Weakness, Vertigo, Memory Changes. negative: Dizziness Musculoskeletal:: Osteoarthritis, Gout, Weakness, Neck Stiffness, Joint Pain, Muscle Pain, Joint Swelling Integumentary: No Symptoms Reported Allergic/Immunologic: No Symptoms Reported Hematologic: No Symptoms Reported, Anemia Endocrine: Cold Intolerance, Osteoporosis, Diabetes, Hypothyroidism Psychiatric: Anxiety, Depression - Physical Exam Vital Signs: Initial Vitals Temperature 97.8 F 09/16/16 10:31 Pulse Rate 90 09/16/16 10:31 Respiratory Rate 20 09/16/16 10:31 Blood Pressure 153/83 09/16/16 10:31 Pulse Oxygen Saturation 84 L 09/16/16 10:31 Constitutional: No apparent distress, Alert, Confused, Other (thin frail elderly white female) Oriented to: Time, Person, Place - HEENT Head: Normal Eye: Normal (PERRL; EOMI) Oropharynx: Normal. negative: Drooling, Exudate, Red Tympanic Membrane: Normal ENT EAC: Normal Nose: No Symptoms Reported. negative: Bleeding, Congestion, Discharge, Deformity Respiratory: Normal - CTA, Diminished Cardiovascular: Tachycardia (regular rhythm and rate) - GI Auscultation: Normal Palpation: Normal Tenderness: Non tender Mendoza's Sign: Negative Rectal Exam: Deferred - Musculoskeletal Back: Normal Extremities: Normal, Pedal Pulse (normal), Radial Pulse (normal). negative: Clubbing, Cyanosis, Edema Spine: non-tender, normal alignment, normal inspection, limited range of motion - Integumentary Skin: Warm, Dry Lymphatics: Normal - Neurologic Memory Impaired: Normal Motor Function: Normal Cranial Nerve: Normal Cerebellar: Normal Mood Description: Anxious Thought: Coherent Perception: Normal - Focused CV Perfusion Exam Vital Signs: Last Vital Signs Temp 99.4 F 09/16/16 12:00 Pulse 92 09/16/16 12:39 Resp 20 09/16/16 12:39 BP 174/83 09/16/16 12:39 Pulse Ox 97 09/16/16 12:39 - Lab Results Laboratory Tests 09/16/16 09/16/16 09/16/16 10:40 10:40 10:40 WBC 17.1 H Hgb 12.0 Hct 37.9 MCV 101 H Plt Count 248 Neut % (Auto) 78.0 H Lymph % (Auto) 11.9 L [place] % (Auto) 8.6 Eos % (Auto) 0.5 PT 11.3 H INR 1.1 APTT 20.1 L pH pCO2 pO2 HCO3 Total CO2 Base Excess FiO2 % Sodium 142 Potassium 4.2 Chloride 106 Carbon Dioxide 25 Anion Gap 15 BUN 46 H Creatinine 3.20 H Estimated GFR (MDRD) 14 L Glucose 117 H Calculated Osmolality 286 Lactic Acid Calcium 9.1 Corrected Calcium 9.5 Total Bilirubin 0.7 AST 19 ALT 16 Alkaline Phosphatase 75 Troponin I 0.04 [id number] Pept 7880 H Total Protein 6.7 Albumin 3.6 Lipase 79 Urine Color Urine Clarity Urine pH Ur Specific [place] Urine Protein Urine Glucose (UA) Urine Ketones Urine Occult Blood Urine Nitrite Urine RBC Urine WBC Ur Epithelial Cells Urine Bacteria 09/16/16 09/16/16 09/16/16 10:51 10:57 11:00 WBC Hgb Hct MCV Plt Count Neut % (Auto) Lymph % (Auto) [place] % (Auto) Eos % (Auto) PT INR APTT pH 7.450 pCO2 37.0 pO2 68.0 L HCO3 25.7 Total CO2 26.8 Base Excess 1.8 FiO2 % 2 lpm nc Sodium Potassium Chloride Carbon Dioxide Anion Gap BUN Creatinine Estimated GFR (MDRD) Glucose Calculated Osmolality Lactic Acid 2.5 H Calcium Corrected Calcium Total Bilirubin AST ALT Alkaline Phosphatase Troponin I Ghh-[id number]-Fqqccglaurd Pept Total Protein Albumin Lipase Urine Color Yellow Urine Clarity Cldy Urine pH 5.0 Ur Specific [place] 1.010 Urine Protein 3+ H Urine Glucose (UA) Neg Urine Ketones Neg Urine Occult Blood 1+ H Urine Nitrite Neg Urine RBC 2-5 Urine WBC 0-2 Ur Epithelial Cells 2+ Urine Bacteria Few 09/16/16 14:50 WBC Hgb Hct MCV Plt Count Neut % (Auto) Lymph % (Auto) [place] % (Auto) Eos % (Auto) PT INR APTT pH pCO2 pO2 HCO3 Total CO2 Base Excess FiO2 % Sodium Potassium Chloride Carbon Dioxide Anion Gap BUN Creatinine Estimated GFR (MDRD) Glucose Calculated Osmolality Lactic Acid 0.9 Calcium Corrected Calcium Total Bilirubin AST ALT Alkaline Phosphatase Troponin I Tny-P-Hndymifyvlh Pept Total Protein Albumin Lipase Urine Color Urine Clarity Urine pH Ur Specific [place] Urine Protein Urine Glucose (UA) Urine Ketones Urine Occult Blood Urine Nitrite Urine RBC Urine WBC Ur Epithelial Cells Urine Bacteria - Diagnostic Findings CTA Chest: IMPRESSION: 5 x 6.1 cm diameter abdominal aortic aneurysm. No retroperitoneal hematoma. Focal infiltration in the right lung base suggesting pneumonia. Bilateral renal parenchymal atrophy. No evidence of bowel obstruction or inflammation. Diverticulosis of the sigmoid colon without evidence of diverticulitis. Electronically Signed By: Doyle Law M.D. On: 09/13/2016 03:45 - Assessment (1) Sepsis A41.9 - SEPSIS, UNSPECIFIED ORGANISM Acute Present on Admission: Yes Qualifiers: Sepsis type: sepsis due to unspecified organism Qualified Code(s): A41.9 - Sepsis, unspecified organism Admit, obtain blood cultures, begin rapid IV fluid resuscitation, IV antibiotics and follow sepsis protocol. Patient meets criteria for sepsis with leukocytosis, 2 or more organ systems affected (lungs, kidneys, & hematologic) and elevated lactic acid level of 2.5 with presence of pneumonia. (2) Community acquired pneumonia J18.9 - PNEUMONIA, UNSPECIFIED ORGANISM Acute Present on Admission: Yes Right lower lobe pneumonia, consistent with aspiration pneumonia in presence of recent episode of nausea and vomiting, will start IV fluids and antibiotics with IV Zosyn and Zithromax. Follow O2 sats and CXR's. (3) Acute renal failure superimposed on stage 3 chronic kidney disease N17.9 - ACUTE KIDNEY FAILURE, UNSPECIFIED; N18.3 - CHRONIC KIDNEY DISEASE, STAGE 3 (MODERATE) Acute Present on Admission: Yes Patient with history of CKD stage 3 or 4? now with additional compromise from dehydration and volume loss, will hydrate and follow renal function. Monitor electrolytes also. (4) Toxic metabolic encephalopathy G92 - TOXIC ENCEPHALOPATHY Acute Present on Admission: Yes According to her family she is less alert than usual, less responsive. She is able to converse with me, although she is forgetful. May have some mild delirium. (5) Failure of outpatient treatment Z78.9 - OTHER SPECIFIED HEALTH STATUS Acute Present on Admission: Yes Patient was given Zithromax and Cipro at home. Case Care Discussed with: Patient, Family, Nursing Staff, Resource Management Total Time: 65 min Critical Care: Yes Couseling Time (>50% in counseling/coordination): Yes Code: 291
[2016-09-16] MEDS: NS 1,000 ML IV SCH ×5 (13:38→23:42)
[2016-09-16] MEDS: ONDANSETRON HCL 4 MG/2 ML VIAL IV PRN (14:09)
[2016-09-16] MEDS ORDERED: ALBUTEROL 6.7 GM MDI INH PRN (14:16)
[2016-09-16] MEDS ORDERED: Non-Formulary Medication ITEM (Tiotropium [Spiriva Handihaler] 18 MCG) INH PRN (14:16)
[2016-09-16] MEDS ORDERED: IPRATROPIUM 0.02% 2.5 ML NEB NEB PRN (14:35)
[2016-09-16] MEDS ORDERED: ALBUTEROL 6.7 GM MDI INH SCH (14:38)
[2016-09-16] MEDS: CEFTRIAXONE 1 GM in D5W 100 ML IV SCH (14:49)
[2016-09-16] MEDS: HYDROCODONE 5 MG/ACETAMIN 325 MG TAB PO PRN (14:49)
[2016-09-16] MEDS ORDERED: Vaccine Screening Complete SCH (15:00)
[2016-09-16] MEDS: AZITHROMYCIN 500 MG in D5W 250 ML IV SCH (15:32)
[2016-09-16] MEDS: SODIUM CHLORIDE 0.9% 3 ML FLUSH FLUSH SCH (17:13)
[2016-09-16] MEDS: ENOXAPARIN 30 MG/0.3 ML PFS SQ SCH (17:14)
[2016-09-16] MEDS: REGULAR INSULIN 100 UNITS/ML - 3 ML VIAL SQ SCH ×2 (17:14→21:37)
[2016-09-16] MEDS ORDERED: [UNRECOGNIZED DRUG - OTHER] PO SCH (21:00)
[2016-09-16] MEDS ORDERED: CYANOCOBALAMIN PO SCH (21:00)
[2016-09-16] MEDS ORDERED: FOLIC ACID PO SCH (21:00)
[2016-09-16] MEDS ORDERED: PAROXETINE HCL 40 MG PO SCH (21:00)
[2016-09-16] MEDS ORDERED: PYRIDOXINE PO SCH (21:00)
[2016-09-16] MEDS: VITAMINS (FOLGARD RX) TAB PO SCH (21:37)
[2016-09-16] MEDS: METOPROLOL (TOPROL-XL) 100 MG TAB PO SCH (21:38)
[2016-09-16] MEDS: PAROXETINE 20 MG TAB PO SCH (21:38)
[2016-09-17] MEDS: SODIUM CHLORIDE 0.9% 3 ML FLUSH FLUSH SCH ×2 (05:01→16:15)
[2016-09-17] MEDS: REGULAR INSULIN 100 UNITS/ML - 3 ML VIAL SQ SCH ×4 (05:01→20:54)
--- NOTE | 2016-09-17 07:11 | DIRPT ---
CLINICAL DATA: Hypoxia EXAM: PORTABLE CHEST 1 VIEW COMPARISON: 09/16/2016 FINDINGS: Decreased lung volume with mild bibasilar atelectasis has developed since prior study. Negative for heart failure or pneumonia. Negative for effusion IMPRESSION: Mild bibasilar atelectasis. Electronically Signed By: Fredis Aguilar M.D. On: 09/17/2016 07:08
[2016-09-17] MEDS: NS 1,000 ML IV SCH ×3 (07:29→20:53)
[2016-09-17] MEDS: CALCITRIOL 0.25 MCG PO SCH ×2 (07:31→07:38)
[2016-09-17] MEDS: LEVOTHYROXINE 88 MCG (0.088 MG) TAB PO SCH ×2 (07:31→07:38)
[2016-09-17] MEDS: ALLOPURINOL 300 MG TAB PO SCH ×2 (07:32→07:38)
[2016-09-17] MEDS: AMLODIPINE 5 MG TAB PO SCH ×2 (07:32→07:38)
[2016-09-17] MEDS: METOPROLOL (TOPROL-XL) 100 MG TAB PO SCH ×3 (07:32→20:53)
[2016-09-17] MEDS ORDERED: HALOPERIDOL 5 MG/ML VIAL IM ONE (08:03)
[2016-09-17 11:11] LABS: AUTOMATED BASOPHIL 0.2 % (0-2); AUTOMATED EOSINOPHIL 0.7 % (0-5); AUTOMATED LYMPH 11.3 % (17-44); AUTOMATED MONOCYTE 6.8 % (3-10); MPV 7.2 fL (7.4-10.4)
[2016-09-17 11:24] LABS: BLOOD UREA NITROGEN 31 MG/DL (7-17); CALC CORRECTED 9.1 MG/DL (8.4-10.2); CALCIUM 7.6 MG/DL (8.4-10.2); CALCULATED OSMOLALITY 280 MOs/Kg (270-290); CHLORIDE 113 mEq/L (98-107); GLUCOSE 90 mg/dL (70-99); SODIUM LEVEL 142 mEq/L (137-146); TOTAL PROTEIN 4.8 G/DL (6.3-8.2)
--- NOTE | 2016-09-17 13:27 | GENMEDPROG ---
Chief Complaint: PNEUMONIA, LEV, MET ENCEPHALOPATHY Current Medication List: Reviewed Currently: Reports: Cough, VOGT, SOB DVT Prophylaxis: Yes - Physical Examination Vital Signs and I&O: Last Vital Signs Temp 98.1 F 09/17/16 06:00 Pulse 83 09/17/16 06:00 Resp 18 09/17/16 06:00 BP 134/64 09/17/16 06:00 Pulse Ox 94 09/17/16 08:20 Oxygen Pulse Oxygen Saturation 94 O2 Device Nasal Cannula Oxygen Flow Rate 2 Fraction of Inspired Oxygen ( FIO2) Intake & Output 09/14/16 09/15/16 09/16/16 09/17/16 23:59 23:59 23:59 23:59 Intake Total 3272 871 Balance 3272 871 Patient's weight 58.287 kg 58.202 kg General: Cooperative, Mild distress, Weakness, Fatigue HEENT: PERRLA, EOMI, Anicteric Sclera, Mucous membr. moist/pink, Normocephalic Neck: Normal Trachea alignment, Normal inspection, No Masses palpable, Supple Lymphatics: Normal Respiratory: Diminished, Rales, Tachypnea Cardiovascular: Regular rate and rhythm, Normal S1, Normal S2 GI: Normal bowel sounds, Soft, Non tender, No masses Extremities/Musculoskeletal: Normal pulses, DJD, FROM Skin: Warm,Dry and Intact Neurological: Normal tone, Cranial nerves 3-12 NL, Drowsy, Somnolent, Lethargy Psych/Mental Status: Cooperative, Confused, Disoriented, Drowsy, Somnolent, Lethargic Lab/DI/Studies Reviewed: Laboratory Tests 09/17/16 09/17/16 09/17/16 04:58 11:04 11:04 WBC 12.2 H Hgb 9.8 L D Hct 31.0 L MCV 101 H Plt Count 164 Neut % (Auto) 81.0 H Lymph % (Auto) 11.3 L [place] % (Auto) 6.8 Sodium 142 Potassium 3.7 Chloride 113 H Carbon Dioxide 22 Anion Gap 11 BUN 31 H Creatinine 2.10 H Estimated GFR (MDRD) 22 L Glucose 90 POC Capillary Glucose 88 Calculated Osmolality 280 Calcium 7.6 L Corrected Calcium 9.1 Total Bilirubin 0.4 AST 15 ALT 20 Alkaline Phosphatase 62 09/17/16 17:55 WBC Hgb 9.4 L Hct 29.1 L MCV Plt Count Neut % (Auto) Lymph % (Auto) [place] % (Auto) Sodium Potassium Chloride Carbon Dioxide Anion Gap BUN Creatinine Estimated GFR (MDRD) Glucose POC Capillary Glucose Calculated Osmolality Calcium Corrected Calcium Total Bilirubin AST ALT Alkaline Phosphatase - Assessment (1) Sepsis Acute A41.9 - SEPSIS, UNSPECIFIED ORGANISM Qualifiers: Sepsis type: sepsis due to unspecified organism Qualified Code(s): A41.9 - Sepsis, unspecified organism Comment/Plan: continue IV fluids & antibiotics and follow sepsis protocol. Patient meets criteria for sepsis with leukocytosis, 2 or more organ systems affected (lungs, kidneys, & hematologic) and elevated lactic acid level of 2.5 with presence of pneumonia. (2) Community acquired pneumonia Acute J18.9 - PNEUMONIA, UNSPECIFIED ORGANISM Comment/Plan: Right lower lobe pneumonia, consistent with aspiration pneumonia in presence of recent episode of nausea and vomiting, will continue IV fluids and antibiotics with IV Zosyn and Zithromax. Follow O2 sats and CXR's. (3) Acute renal failure superimposed on stage 3 chronic kidney disease Acute N17.9 - ACUTE KIDNEY FAILURE, UNSPECIFIED; N18.3 - CHRONIC KIDNEY DISEASE, STAGE 3 (MODERATE) Comment/Plan: Patient with history of CKD stage 3 now with additional compromise from dehydration and volume loss, somewhat better today with hydration; follow renal function. Monitor electrolytes also. (4) Toxic metabolic encephalopathy Acute G92 - TOXIC ENCEPHALOPATHY Comment/Plan: According to her family she is less alert than usual, less responsive. She is able to converse with me, although she is forgetful. May have some mild delirium. (5) Failure of outpatient treatment Acute Z78.9 - OTHER SPECIFIED HEALTH STATUS Comment/Plan: Patient was given Zithromax and Cipro at home.
[2016-09-17] MEDS: CEFTRIAXONE 1 GM in D5W 100 ML IV SCH (13:36)
[2016-09-17] MEDS: ENOXAPARIN 30 MG/0.3 ML PFS SQ SCH (16:32)
[2016-09-17] MEDS: AZITHROMYCIN 500 MG in D5W 250 ML IV SCH (16:33)
[2016-09-17] MEDS: PAROXETINE 20 MG TAB PO SCH (20:52)
[2016-09-17] MEDS: VITAMINS (FOLGARD RX) TAB PO SCH (20:53)
[2016-09-18] MEDS: NS 1,000 ML IV SCH ×3 (00:23→19:58)
[2016-09-18] MEDS: HYDROCODONE 5 MG/ACETAMIN 325 MG TAB PO PRN (02:27)
[2016-09-18] MEDS: SODIUM CHLORIDE 0.9% 3 ML FLUSH FLUSH SCH ×2 (05:48→17:03)
[2016-09-18] MEDS: REGULAR INSULIN 100 UNITS/ML - 3 ML VIAL SQ SCH ×4 (05:48→20:41)
[2016-09-18] MEDS: AMLODIPINE 5 MG TAB PO SCH (07:55)
[2016-09-18] MEDS: CALCITRIOL 0.25 MCG PO SCH (07:55)
[2016-09-18] MEDS: METOPROLOL (TOPROL-XL) 100 MG TAB PO SCH ×2 (07:56→21:08)
[2016-09-18] MEDS: LEVOTHYROXINE 88 MCG (0.088 MG) TAB PO SCH (07:56)
[2016-09-18] MEDS: ALLOPURINOL 300 MG TAB PO SCH (07:56)
[2016-09-18] MEDS ORDERED: HALOPERIDOL 5 MG/ML VIAL IV PRN (10:19)
--- NOTE | 2016-09-18 11:39 | GENMEDPROG ---
Currently: Reports: Cough, VOGT, SOB DVT Prophylaxis: Yes - Physical Examination Vital Signs and I&O: Last Vital Signs Temp 99.0 F 09/18/16 10:34 Pulse 75 09/18/16 10:34 Resp 18 09/18/16 10:34 BP 112/61 09/18/16 10:34 Pulse Ox 96 09/18/16 10:34 Oxygen Pulse Oxygen Saturation 96 O2 Device Nasal Cannula Oxygen Flow Rate 3 Fraction of Inspired Oxygen ( FIO2) Intake & Output 09/15/16 09/16/16 09/17/16 09/18/16 23:59 23:59 23:59 23:59 Intake Total 3272 2573 1033 Balance 3272 2573 1033 Patient's weight 58.287 kg 58.202 kg 57.606 kg General: Cooperative, Mild distress, Weakness, Fatigue HEENT: PERRLA, EOMI, Anicteric Sclera, Mucous membr. moist/pink, Normocephalic Neck: Normal Trachea alignment, Normal inspection, No Masses palpable, Supple Lymphatics: Normal Respiratory: Diminished, Rales, Tachypnea Cardiovascular: Regular rate and rhythm, Normal S1, Normal S2 GI: Normal bowel sounds, Soft, Non tender, No masses Extremities/Musculoskeletal: Normal pulses, DJD, FROM Skin: Warm,Dry and Intact Neurological: Normal tone, Cranial nerves 3-12 NL, Drowsy, Somnolent, Lethargy Psych/Mental Status: Cooperative, Confused, Disoriented, Drowsy, Somnolent, Lethargic - Assessment (1) Sepsis Acute A41.9 - SEPSIS, UNSPECIFIED ORGANISM Qualifiers: Sepsis type: sepsis due to unspecified organism Qualified Code(s): A41.9 - Sepsis, unspecified organism Comment/Plan: continue IV fluids & antibiotics and follow sepsis protocol. Patient meets criteria for sepsis with leukocytosis, 2 or more organ systems affected (lungs, kidneys, & hematologic) and elevated lactic acid level of 2.5 with presence of pneumonia. (2) Community acquired pneumonia Acute J18.9 - PNEUMONIA, UNSPECIFIED ORGANISM Comment/Plan: Right lower lobe pneumonia, consistent with aspiration pneumonia in presence of recent episode of nausea and vomiting, will continue IV fluids and antibiotics with IV Zosyn and Zithromax. Follow O2 sats and CXR's. (3) Acute renal failure superimposed on stage 3 chronic kidney disease Acute N17.9 - ACUTE KIDNEY FAILURE, UNSPECIFIED; N18.3 - CHRONIC KIDNEY DISEASE, STAGE 3 (MODERATE) Comment/Plan: Patient with history of CKD stage 3 now with additional compromise from dehydration and volume loss, somewhat better today with hydration; follow renal function. Monitor electrolytes also. (4) Toxic metabolic encephalopathy Acute G92 - TOXIC ENCEPHALOPATHY Comment/Plan: According to her family she is less alert than usual, less responsive. She is able to converse with me, although she is forgetful. May have some mild delirium. (5) Failure of outpatient treatment Acute Z78.9 - OTHER SPECIFIED HEALTH STATUS Comment/Plan: Patient was given Zithromax and Cipro at home.
[2016-09-18] MEDS: CEFTRIAXONE 1 GM in D5W 100 ML IV SCH (14:00)
[2016-09-18] MEDS: AZITHROMYCIN 500 MG in D5W 250 ML IV SCH (15:04)
[2016-09-18] MEDS: ENOXAPARIN 30 MG/0.3 ML PFS SQ SCH (17:03)
[2016-09-18] MEDS: VITAMINS (FOLGARD RX) TAB PO SCH (21:08)
[2016-09-18] MEDS: PAROXETINE 20 MG TAB PO SCH (21:08)
[2016-09-19] MEDS: NS 1,000 ML IV SCH ×4 (04:04→23:08)
[2016-09-19 04:06] VITALS: BMI 21.8
[2016-09-19] MEDS: SODIUM CHLORIDE 0.9% 3 ML FLUSH FLUSH SCH ×2 (05:16→16:31)
[2016-09-19 06:00] LABS: MPV 8.6 fL (7.4-10.4)
[2016-09-19 06:13] LABS: BLOOD UREA NITROGEN 21 MG/DL (7-17); CALCIUM 7.4 MG/DL (8.4-10.2); CALCULATED OSMOLALITY 279 MOs/Kg (270-290); CHLORIDE 115 mEq/L (98-107); GLUCOSE 85 mg/dL (70-99); SODIUM LEVEL 144 mEq/L (137-146)
[2016-09-19] MEDS: REGULAR INSULIN 100 UNITS/ML - 3 ML VIAL SQ SCH ×4 (06:19→22:39)
[2016-09-19] MEDS: ALLOPURINOL 300 MG TAB PO SCH (09:38)
[2016-09-19] MEDS: LEVOTHYROXINE 88 MCG (0.088 MG) TAB PO SCH (09:38)
[2016-09-19] MEDS: METOPROLOL (TOPROL-XL) 100 MG TAB PO SCH ×2 (09:38→20:05)
[2016-09-19] MEDS: CALCITRIOL 0.25 MCG PO SCH (09:38)
[2016-09-19] MEDS: AMLODIPINE 5 MG TAB PO SCH (09:42)
[2016-09-19] MEDS: CEFTRIAXONE 1 GM in D5W 100 ML IV SCH (13:40)
--- NOTE | 2016-09-19 14:51 | GENMEDPROG ---
Currently: Reports: Cough, VOGT, SOB DVT Prophylaxis: Yes - Physical Examination Vital Signs and I&O: Last Vital Signs Temp 98.4 F 09/19/16 13:31 Pulse 80 09/19/16 13:31 Resp 18 09/19/16 13:31 BP 107/74 09/19/16 10:00 Pulse Ox 93 09/19/16 13:31 Oxygen Pulse Oxygen Saturation 93 O2 Device Nasal Cannula Oxygen Flow Rate 2 Fraction of Inspired Oxygen ( FIO2) Intake & Output 09/16/16 09/17/16 09/18/16 09/19/16 23:59 23:59 23:59 23:59 Intake Total 3272 2203 0054 1821 Balance 3272 8553 0284 1822 Patient's weight 58.287 kg 58.202 kg 57.606 kg 57.606 kg General: Alert (responsive), Cooperative, Mild distress, Well appearing, Well nourished, Weakness HEENT: PERRLA, EOMI, Anicteric Sclera, Mucous membr. moist/pink, Normocephalic, Other (essential tremor) Neck: Normal Trachea alignment, Normal inspection, No Masses palpable, Supple Lymphatics: Normal Respiratory: Diminished, Rales, Tachypnea Cardiovascular: Regular rate and rhythm, Normal S1, Normal S2 GI: Normal bowel sounds, Soft, Non tender, No masses Extremities/Musculoskeletal: Normal pulses, DJD, FROM Skin: Warm,Dry and Intact Neurological: Normal speech, Strength at 5/5 X4 ext, Normal tone, Cranial nerves 3-12 NL Psych/Mental Status: Appropriate, Normal Affect, Cooperative, Other (essential tremor) - Assessment (1) Sepsis Acute A41.9 - SEPSIS, UNSPECIFIED ORGANISM Qualifiers: Sepsis type: sepsis due to unspecified organism Qualified Code(s): A41.9 - Sepsis, unspecified organism Comment/Plan: Continue IV fluids & antibiotics and follow sepsis protocol. Patient meets criteria for sepsis with leukocytosis, 2 or more organ systems affected (lungs, kidneys, & hematologic) and elevated lactic acid level of 2.5 with presence of pneumonia. Improving. (2) Community acquired pneumonia Acute J18.9 - PNEUMONIA, UNSPECIFIED ORGANISM Comment/Plan: Right lower lobe pneumonia, consistent with aspiration pneumonia in presence of recent episode of nausea and vomiting, will continue IV fluids and antibiotics with IV Zosyn and Zithromax. Follow O2 sats and CXR's. (3) Acute renal failure superimposed on stage 3 chronic kidney disease Acute N17.9 - ACUTE KIDNEY FAILURE, UNSPECIFIED; N18.3 - CHRONIC KIDNEY DISEASE, STAGE 3 (MODERATE) Comment/Plan: Patient with history of CKD stage 3 now with additional compromise from dehydration and volume loss, somewhat better today with hydration; follow renal function. Monitor electrolytes also. (4) Toxic metabolic encephalopathy Acute G92 - TOXIC ENCEPHALOPATHY Comment/Plan: Patient is much more alert and appropriate today, responsive. Sitting up in chair, feeding self. Has essential tremor of head and arms/hands. (5) Failure of outpatient treatment Acute Z78.9 - OTHER SPECIFIED HEALTH STATUS Comment/Plan: Patient was given Zithromax and Cipro at home.
[2016-09-19] MEDS: ENOXAPARIN 30 MG/0.3 ML PFS SQ SCH (16:31)
[2016-09-19] MEDS: AZITHROMYCIN 500 MG in D5W 250 ML IV SCH (16:31)
[2016-09-19] MEDS: HYDROCODONE 5 MG/ACETAMIN 325 MG TAB PO PRN (18:11)
[2016-09-19] MEDS: VITAMINS (FOLGARD RX) TAB PO SCH (20:05)
[2016-09-19] MEDS: PAROXETINE 20 MG TAB PO SCH (23:07)
[2016-09-20] MEDS: HYDROCODONE 5 MG/ACETAMIN 325 MG TAB PO PRN ×2 (04:26→16:16)
[2016-09-20] MEDS: SODIUM CHLORIDE 0.9% 3 ML FLUSH FLUSH SCH ×2 (05:11→16:20)
[2016-09-20] MEDS: REGULAR INSULIN 100 UNITS/ML - 3 ML VIAL SQ SCH ×4 (06:34→22:07)
[2016-09-20] MEDS: NS 1,000 ML IV SCH (10:44)
[2016-09-20] MEDS: AMLODIPINE 5 MG TAB PO SCH (10:45)
[2016-09-20] MEDS: CALCITRIOL 0.25 MCG PO SCH (10:46)
[2016-09-20] MEDS: METOPROLOL (TOPROL-XL) 100 MG TAB PO SCH ×2 (10:46→20:39)
[2016-09-20] MEDS: LEVOTHYROXINE 88 MCG (0.088 MG) TAB PO SCH (10:46)
[2016-09-20] MEDS: ALLOPURINOL 100 MG TAB PO SCH (10:54)
[2016-09-20] MEDS: AZITHROMYCIN 500 MG in D5W 250 ML IV SCH (13:59)
[2016-09-20] MEDS: CEFTRIAXONE 1 GM in D5W 100 ML IV SCH (13:59)
--- NOTE | 2016-09-20 15:18 | GENMEDPROG ---
Chief Complaint: sepsis, pneumonia, acute kidney injury, metabolic encephalopathy Currently: Reports: Cough, VOGT, SOB DVT Prophylaxis: Yes - Physical Examination Vital Signs and I&O: Last Vital Signs Temp 98.7 F 09/20/16 14:00 Pulse 72 09/20/16 14:00 Resp 18 09/20/16 14:00 BP 116/86 09/20/16 14:00 Pulse Ox 93 09/20/16 14:00 Oxygen Pulse Oxygen Saturation 93 O2 Device Nasal Cannula Oxygen Flow Rate 2 Fraction of Inspired Oxygen ( FIO2) Intake & Output 09/17/16 09/18/16 09/19/16 09/20/16 23:59 23:59 23:59 23:59 Intake Total 2813 6021 2856 150 Balance 2573 9834 2631 195 Patient's weight 58.202 kg 57.606 kg 57.606 kg 57.748 kg General: Alert (responsive), Cooperative, Mild distress, Well appearing, Well nourished, Weakness HEENT: PERRLA, EOMI, Anicteric Sclera, Mucous membr. moist/pink, Normocephalic, Other (essential tremor) Neck: Normal Trachea alignment, Normal inspection, No Masses palpable, Supple Lymphatics: Normal Respiratory: Diminished, Rales, Tachypnea Cardiovascular: Regular rate and rhythm, Normal S1, Normal S2 GI: Normal bowel sounds, Soft, Non tender, No masses Extremities/Musculoskeletal: Normal pulses, DJD, FROM Skin: Warm,Dry and Intact Neurological: Normal speech, Strength at 5/5 X4 ext, Normal tone, Cranial nerves 3-12 NL Psych/Mental Status: Appropriate, Normal Affect, Cooperative, Other (essential tremor) Lab/DI/Studies Reviewed: Laboratory Tests 09/19/16 09/19/16 09/19/16 05:25 05:25 05:31 WBC 12.7 H Hgb 10.2 L Hct 32.1 L MCV 101 H Plt Count 179 Sodium 144 Potassium 3.4 L Chloride 115 H Carbon Dioxide 20 L Anion Gap 12 BUN 21 H Creatinine 1.70 H Estimated GFR (MDRD) 29 L Glucose 85 POC Capillary Glucose 82 Calculated Osmolality 279 Calcium 7.4 L 09/19/16 09/19/16 09/19/16 11:23 16:38 20:15 WBC Hgb Hct MCV Plt Count Sodium Potassium Chloride Carbon Dioxide Anion Gap BUN Creatinine Estimated GFR (MDRD) Glucose POC Capillary Glucose 88 113 H 73 Calculated Osmolality Calcium 09/20/16 09/20/16 06:32 10:58 WBC Hgb Hct MCV Plt Count Sodium Potassium Chloride Carbon Dioxide Anion Gap BUN Creatinine Estimated GFR (MDRD) Glucose POC Capillary Glucose 91 117 H Calculated Osmolality Calcium - Assessment (1) Sepsis Acute A41.9 - SEPSIS, UNSPECIFIED ORGANISM Qualifiers: Sepsis type: sepsis due to unspecified organism Qualified Code(s): A41.9 - Sepsis, unspecified organism Comment/Plan: Continue IV fluids & antibiotics and follow sepsis protocol. Patient meets criteria for sepsis with leukocytosis, 2 or more organ systems affected (lungs, kidneys, & hematologic) and elevated lactic acid level of 2.5 with presence of pneumonia. Improving. (2) Community acquired pneumonia Acute J18.9 - PNEUMONIA, UNSPECIFIED ORGANISM Comment/Plan: Right lower lobe pneumonia, consistent with aspiration pneumonia in presence of recent episode of nausea and vomiting, will continue IV fluids and antibiotics with IV Zosyn and Zithromax. Follow O2 sats and CXR's. (3) Acute renal failure superimposed on stage 3 chronic kidney disease Acute N17.9 - ACUTE KIDNEY FAILURE, UNSPECIFIED; N18.3 - CHRONIC KIDNEY DISEASE, STAGE 3 (MODERATE) Comment/Plan: Patient with history of CKD stage 3 now with additional compromise from dehydration and volume loss, somewhat better today with hydration; follow renal function. Monitor electrolytes also. Gradually improving, anticipate discharge to SNF Wednesday or Wednesday. (4) Toxic metabolic encephalopathy Resolved G92 - TOXIC ENCEPHALOPATHY Comment/Plan: Patient is much more alert and appropriate today, responsive. Sitting up in chair, feeding self. Has essential tremor of head and arms/hands. (5) Failure of outpatient treatment Resolved Z78.9 - OTHER SPECIFIED HEALTH STATUS Comment/Plan: Patient was given Zithromax and Cipro at home. - Plan Discharge to SNF Wednesday or Wednesday Case Care Discussed with: Patient, Family, Nursing Staff, Resource Management Education/Counseling Given To: Patient, Family Member Education/Counseling Given Regarding: Diagnosis, Treatment, Prognosis Total Time: 35 min Critical Care: No Couseling Time (>50% in counseling/coordination): Yes Code: 97938 (12+)
[2016-09-20] MEDS: ENOXAPARIN 30 MG/0.3 ML PFS SQ SCH (16:22)
[2016-09-20] MEDS: PAROXETINE 20 MG TAB PO SCH (20:39)
[2016-09-20] MEDS: VITAMINS (FOLGARD RX) TAB PO SCH (20:41)
[2016-09-21] MEDS: NS 1,000 ML IV SCH ×2 (00:53→10:04)
[2016-09-21] MEDS: ONDANSETRON HCL 4 MG/2 ML VIAL IV PRN (01:15)
[2016-09-21] MEDS: REGULAR INSULIN 100 UNITS/ML - 3 ML VIAL SQ SCH ×2 (06:01→11:42)
[2016-09-21] MEDS: SODIUM CHLORIDE 0.9% 3 ML FLUSH FLUSH SCH (06:01)
[2016-09-21] MEDS: HYDROCODONE 5 MG/ACETAMIN 325 MG TAB PO PRN ×2 (06:03→15:13)
--- NOTE | 2016-09-21 08:28 | DIRPT ---
CLINICAL DATA: Follow-up pneumonia EXAM: CHEST 2 VIEW COMPARISON: 09/17/2016 FINDINGS: Mild patchy right lower lobe opacity, overlying the spine on the lateral view, suspicious for pneumonia, less likely atelectasis. Associated small right pleural effusion. Mild left basilar opacity, likely atelectasis. Increased interstitial markings, likely chronic. No veda interstitial edema. Cardiomegaly. Mild degenerative changes of the visualized thoracolumbar spine. IMPRESSION: Mild patchy right lower lobe opacity, suspicious for pneumonia, less likely atelectasis. Associated small right pleural effusion. Mild left basilar opacity, likely atelectasis. Electronically Signed By: Janna Ramesh M.D. On: 09/21/2016 08:26
[2016-09-21] MEDS: ALLOPURINOL 100 MG TAB PO SCH (08:45)
[2016-09-21] MEDS: AMLODIPINE 5 MG TAB PO SCH (08:46)
[2016-09-21] MEDS: LEVOTHYROXINE 88 MCG (0.088 MG) TAB PO SCH (08:46)
[2016-09-21] MEDS: CALCITRIOL 0.25 MCG PO SCH (08:46)
[2016-09-21] MEDS: METOPROLOL (TOPROL-XL) 100 MG TAB PO SCH (08:46)
[2016-09-21 10:31] VITALS: BP 130/70; PULSE 74; TEMP 97.5
--- NOTE | 2016-09-21 12:55 | PCM.DCS92 ---
- Final/Secondary Discharge Diagnosis (1) Sepsis Resolved A41.9 - SEPSIS, UNSPECIFIED ORGANISM Present on Admission: Yes sepsis due to unspecified organism A41.9 - Sepsis, unspecified organism Comment: Continue IV fluids & antibiotics and follow sepsis protocol. Patient meets criteria for sepsis with leukocytosis, 2 or more organ systems affected ( lungs, kidneys, & hematologic) and elevated lactic acid level of 2.5 with presence of pneumonia. Improving. (2) Community acquired pneumonia Resolved J18.9 - PNEUMONIA, UNSPECIFIED ORGANISM Present on Admission: Yes Comment: Right lower lobe pneumonia, consistent with aspiration pneumonia in presence of recent episode of nausea and vomiting, will continue IV fluids and antibiotics with IV Zosyn and Zithromax. Follow O2 sats and CXR's. (3) Acute renal failure superimposed on stage 3 chronic kidney disease Acute N17.9 - ACUTE KIDNEY FAILURE, UNSPECIFIED; N18.3 - CHRONIC KIDNEY DISEASE, STAGE 3 (MODERATE) Present on Admission: Yes Comment: Patient with history of CKD stage 3 now with additional compromise from dehydration and volume loss, somewhat better today with hydration; follow renal function. Monitor electrolytes also. Gradually improving, anticipate discharge to SNF Wednesday or Wednesday. (4) Toxic metabolic encephalopathy Resolved G92 - TOXIC ENCEPHALOPATHY Present on Admission: Yes Comment: Patient is much more alert and appropriate today, responsive. Sitting up in chair, feeding self. Has essential tremor of head and arms/hands. (5) Failure of outpatient treatment Resolved Z78.9 - OTHER SPECIFIED HEALTH STATUS Present on Admission: Yes Comment: Patient was given Zithromax and Cipro at home. Discharge Disposition: Sn[facility] Facility Discharge Condition: Improved Cognitive Discharge Status: Unable to communicate needs Fuctional Discharge Status: Walker Assistance, Fall Risk, Ambulatory Dysfunction Physician Follow up/Referrals: Federica Oliver, MALICK [Primary Care Provider] - Three Weeks Home Medications / New Prescriptions: Continue Tiotropium [Spiriva Handihaler] 18 mcg INH DAILY PRN PRN Reason: Shortness Of Breath Paroxetine HCl 40 mg PO HS Amlodipine [Norvasc] 5 mg PO QAM Metoprolol Succinate 200 mg PO QAM Cyanocobalamin/FA/Pyridoxine [Folplex 2.2 Tablet (2.2 mg/1 mg/25 mg)] 1 tab PO HS Levothyroxine [Synthroid, Levoxyl] 88 mcg PO QAM Allopurinol 300 mg PO QAM ClonazePAM [Klonopin] 0.5 mg PO BID #60 tablet Promethazine [Phenergan] 25 mg PO Q6H PRN #10 tab PRN Reason: Nausea/Vomiting Metoprolol Succinate (XL) [Toprol Xl] 100 mg PO BID Albuterol Sulfate [Proair Hfa] 2 puff INH Q4-6H PRN PRN Reason: Shortness Of Breath Hydrocodone Bit/Acetaminophen [[place] 5-325 Tablet] 1 tab PO Q6 PRN PRN Reason: Pain Calcitriol [Rocaltrol] 0.25 mcg PO DAILY Hydrocodone/Acetaminophen [Hydrocodon-Acetaminophen 5-325] 5 - 325 mg PO Q4H PRN PRN Reason: Pain Discontinued Dipyridamole/Aspirin 200/25 [Aggrenox (200mg/25mg)] 1 cap PO BID Azithromycin [Zithromax] 250 mg PO DAILY #4 tab Ciprofloxacin HCl [Cipro] 250 mg PO DAILY Discharge Home Medication List Amlodipine [Norvasc] 5 mg PO QAM 06/21/13 [History Confirmed 09/16/16] Metoprolol Succinate 200 mg PO QAM 06/21/13 [History Confirmed 09/16/16] Paroxetine HCl 40 mg PO HS 06/21/13 [History Confirmed 09/16/16] Tiotropium [Spiriva Handihaler] 18 mcg INH DAILY PRN 06/21/13 [History Confirmed 09/16/16] Cyanocobalamin/FA/Pyridoxine [Folplex 2.2 Tablet (2.2 mg/1 mg/25 mg)] 1 tab PO HS 03/01/16 [History Confirmed 09/16/16] Levothyroxine [Synthroid, Levoxyl] 88 mcg PO QAM 03/01/16 [History Confirmed 09/01] Allopurinol 300 mg PO QAM 05/28/16 [History Confirmed 09/16/16] ClonazePAM [Klonopin] 0.5 mg PO BID #60 tablet 06/03/16 [Rx Confirmed 09/16/16] Promethazine [Phenergan] 25 mg PO Q6H PRN #10 tab 09/13/16 [Rx Confirmed ] Albuterol Sulfate [Proair Hfa] 2 puff INH Q4-6H PRN 09/16/16 [History Confirmed 09/16/16] Calcitriol [Rocaltrol] 0.25 mcg PO DAILY 09/16/16 [History Confirmed 09/16/16] Hydrocodone Bit/Acetaminophen [[place] 5-325 Tablet] 1 tab PO Q6 PRN 09/16/16 [ History Confirmed 09/16/16] Hydrocodone/Acetaminophen [Hydrocodon-Acetaminophen 5-325] 5 - 325 mg PO Q4H PRN 09/16/16 [History Confirmed 09/16/16] Metoprolol Succinate (XL) [Toprol Xl] 100 mg PO BID 09/16/16 [History Confirmed 09/16/16] O2 Device: Nasal Cannula Oxygen Flow Rate: 2 Oxygen to be used after Discharge: Continuous Diet at Discharge: As Tolerated, Regular Activity: No Restrictions, As Tolerated Call Office For: Worsening Symptoms, Fever over 100.5, Pain Uncontrolled By Meds - DC Summary Notes Hospital Course Note:: Discharge summary on patient named ALVARADO PHAN admitted to [facility] on 09/16/16 by Eva Nelson MD. Date of discharge is []. 81 year-old Female who presented to our hospital confused in with sepsis. She was found to have a community-acquired pneumonia and had failed outpatient treatment. She was started on IV antibiotics and responded fairly quickly. Over the ensuing days her acute renal failure improved as did her toxic metabolic encephalopathy. At this point patient has reached maximum benefit of hospitalization. She is now breathing comfortably on her usual 2 L of home oxygen dose. She is stable for discharge to retirement facility she has reached maximal benefit of hospitalization. - Physical Exam Vital Signs: Last Vital Signs Temp 97.5 F 09/21/16 10:00 Pulse 74 09/21/16 10:00 Resp 18 09/21/16 10:00 BP 130/70 09/21/16 10:00 Pulse Ox 93 09/21/16 10:00 Oxygen Pulse Oxygen Saturation 93 O2 Device Nasal Cannula Oxygen Flow Rate 2 Fraction of Inspired Oxygen ( FIO2) Constitutional: No apparent distress, Alert, Confused, Other (thin frail elderly white female) Oriented to: Time, Person, Place - HEENT Head: Normal Eye: Normal (PERRL; EOMI) Oropharynx: Normal. negative: Drooling, Exudate, Red Tympanic Membrane: Normal ENT EAC: Normal Nose: No Symptoms Reported. negative: Bleeding, Congestion, Discharge, Deformity - Respiratory/Cardiovascular Respiratory: Diminished, Rales, Tachypnea - GI Auscultation: Normal Palpation: Normal Tenderness: Non tender Mendoza's Sign: Negative Rectal Exam: Deferred - Musculoskeletal Back: Normal Extremities: Normal, Pedal Pulse (normal), Radial Pulse (normal). negative: Clubbing, Cyanosis, Edema - Integumentary Lymphatics: Normal - Neurologic Memory Impaired: Normal Cerebellar: Normal Mood Description: Anxious Thought: Coherent Perception: Normal - Other Exam Other Exam Findings: EXAM: CHEST 2 VIEW COMPARISON: 09/17/2016 FINDINGS: Mild patchy right lower lobe opacity, overlying the spine on the lateral view, suspicious for pneumonia, less likely atelectasis. Associated small right pleural effusion. Mild left basilar opacity, likely atelectasis. Increased interstitial markings, likely chronic. No veda interstitial edema. Cardiomegaly. Mild degenerative changes of the visualized thoracolumbar spine. IMPRESSION: Mild patchy right lower lobe opacity, suspicious for pneumonia, less likely atelectasis. Associated small right pleural effusion. Mild left basilar opacity, likely atelectasis. Electronically Signed By: Janna Ramesh M.D. On: 09/21/2016 08:26 Laboratory Results - last 24 hr 09/20/16 09/20/16 09/21/16 16:03 20:09 05:06 POC Capillary Glucose 126 H 100 H 96 09/21/16 11:14 POC Capillary Glucose 98
[2016-09-21] MEDS: CEFTRIAXONE 1 GM in D5W 100 ML IV SCH (16:12)
== END 2016-09-21 20:00 | DRG 871 ==
LOC: ED 10:29 → PCU 12:31 → MPS3 19:55
PROVIDERS: ADMIT Family Medicine; ATTEND Hospitalist
PROC: 4A033R1 Measurement of Arterial Saturation, Peripheral, Percutaneous Approach (ICD-10-PCS; principal; 2016-09-16)
DX: A41.9 Sepsis, unspecified organism (principal); J18.9 Pneumonia, unspecified organism; N17.9 Acute kidney failure, unspecified; G92 Toxic encephalopathy; N18.3 Chronic kidney disease, stage 3 (moderate); F01.50 Vascular dementia, unspecified severity, without behavioral disturbance, psychotic disturbance, mood disturbance, and anxiety; Z99.81 Dependence on supplemental oxygen; I12.9 Hypertensive chronic kidney disease with stage 1 through stage 4 chronic kidney disease, or unspecified chronic kidney disease; E86.0 Dehydration; R65.20 Severe sepsis without septic shock; I25.10 Atherosclerotic heart disease of native coronary artery without angina pectoris; E78.00 Pure hypercholesterolemia, unspecified; J43.9 Emphysema, unspecified; K21.9 Gastro-esophageal reflux disease without esophagitis; M19.90 Unspecified osteoarthritis, unspecified site; M10.9 Gout, unspecified; E03.9 Hypothyroidism, unspecified; F41.9 Anxiety disorder, unspecified; Z85.3 Personal history of malignant neoplasm of breast; Z86.73 Personal history of transient ischemic attack (TIA), and cerebral infarction without residual deficits; Z90.49 Acquired absence of other specified parts of digestive tract; Z90.710 Acquired absence of both cervix and uterus; Z90.11 Acquired absence of right breast and nipple; Z79.82 Long term (current) use of aspirin; Z87.891 Personal history of nicotine dependence
CPT/HCPCS: 36415; 36600; 71010; 71020; 80048; 80053; 81001; 82272; 82803; 82962; 83605; 83690; 83880; 84484; 85014; 85018; 85025; 85027; 85610; 85730; 87040; 87086; 93005; 96361; 96365; 96366; 96372; 97162; 99285; E0710; G0237; J0456; J0696; J1630; J1650; J1956; J2405; J3490; J7060; J7070